=== PATIENT | male | born 1965 | race Caucasian/White ===

== ENCOUNTER 2017-03-04 17:33 | Emergency (ER) | payer OTHER, BC ==
[2017-03-04] MEDS: IBUPROFEN 800 MG TAB PO (17:49)
[2017-03-04] MEDS: HYDROCODONE/APAP (5/325) TAB PO (17:49)
[2017-03-04] MEDS: morphine 4 MG/ML VIAL IV ×2 (17:55→22:12)
[2017-03-04] MEDS: ONDANSETRON 4 MG INJ IV (17:55)
[2017-03-04] MEDS: CEFAZOLIN 1 GM/50 ML (PMX) 50 ML IVPB (17:55)
[2017-03-04] MEDS: SOD CHLORIDE 0.9% 1,000 ML IV (17:56)
[2017-03-04 18:56] LABS: ADD MAN DIFF? NO
[2017-03-04 18:58] LABS: BASOPHILS % 0.2 % (0.0-2.0); EOSINOPHILS # 0.2 10^3/ul (0.0-0.5); EOSINOPHILS % 3.5 % (0.0-7.0); HEMATOCRIT 44.7 % (42.0-52.0); HEMOGLOBIN 14.5 g/dl (14.0-18.0); LYMPHOCYTES # 1.9 10^3/ul (0.8-2.9); LYMPHOCYTES % 32.4 % (15.0-51.0); MEAN CORPUSCULAR HEMOGLOBIN 28.5 pg (29.0-33.0); MEAN CORPUSCULAR HGB CONC 32.4 g/dl (32.0-37.0); MEAN CORPUSCULAR VOLUME 87.8 fl (82.0-101.0); MEAN PLATELET VOLUME 11.5 fl (7.4-10.4); MONOCYTE # 0.6 10^3/ul (0.3-0.9); MONOCYTES % 9.5 % (0.0-11.0); NEUTROPHIL # 3.3 10^3/ul (1.6-7.5); NEUTROPHILS % 54.2 % (39.0-77.0); PLATELET COUNT 235 10^3/UL (140-415); RED BLOOD COUNT 5.09 10^6/ul (4.70-6.10); RED CELL DISTRIBUTION WIDTH 12.3 % (11.5-14.5)
[2017-03-04 19:16] LABS: INR 0.82; PROTIME 11.4 Sec (11.9-14.9); PT RATIO 0.9
[2017-03-04 19:17] LABS: PARTIAL THROMBOPLASTIN TIME 22.2 Sec (25.0-35.0)
[2017-03-04 19:37] LABS: ALANINE AMINOTRANSFERASE 49 IU/L (13-69); ALBUMIN 4.6 g/dl (3.3-4.9); ALBUMIN/GLOBULIN RATIO 1.43; ALKALINE PHOSPHATASE 75 IU/L (42-121); ANION GAP 16 (8-16); ASPARTATE AMINO TRANSFERASE 35 IU/L (15-46); BILIRUBIN,INDIRECT 0.5 mg/dl (0-1.1); BILIRUBIN,TOTAL 0.5 mg/dl (0.2-1.3); BLOOD UREA NITROGEN 19 mg/dl (7-20); CALCIUM 9.2 mg/dl (8.4-10.2); CARBON DIOXIDE 28 mmol/L (21-31); CHLORIDE 101 mmol/L (97-110); CREATININE 1.05 mg/dl (0.61-1.24); GLUCOSE 93 mg/dl (70-220); POTASSIUM 4.1 mmol/L (3.5-5.1); SODIUM 141 mmol/L (135-144); TOTAL PROTEIN 7.8 g/dl (6.1-8.1)
== END 2017-03-04 22:36 | disposition left against medical advice (07) ==
LOC: FTE 22:36
DX: S82.52XA Displaced fracture of medial malleolus of left tibia, initial encounter for closed fracture (principal); I10 Essential (primary) hypertension; R07.9 Chest pain, unspecified; W45.0XXA Nail entering through skin, initial encounter; Y92.9 Unspecified place or not applicable
CPT/HCPCS: 29515; 71045; 73700; 80053; 85025; 85610; 85730; 93005; 96374; 96375; 96376; 99285-25